=== PATIENT | male | born 1955 | race Caucasian/White ===

== ENCOUNTER 2019-03-30 20:16 | Emergency (ER) | payer OTHER ==
[~2019-03-30] VITALS: Ht 177.8 cm; Wt 76.7 kg
[2019-03-30] MEDS ORDERED: IBUPROFEN 600 MG TABLET PO ONE (20:45)
[2019-03-30] MEDS ORDERED: IBUPROFEN 600 MG TABLET ONE (20:50)
--- NOTE | 2019-03-30 20:51 | NUR ---
Patient discharged to home in stable conditon. Written and verbal after care instructions given. Patient verbalizes understanding of instructions. Patient ambulated with stable gait.
[2019-03-30 20:57] VITALS: BP 119/73
== END 2019-03-30 20:57 | disposition home or self-care (01) ==
LOC: ER 20:16
DX: M25.462 Effusion, left knee (principal); Z88.0 Allergy status to penicillin
CPT/HCPCS: A4663